=== PATIENT | male | born 1950 | race Caucasian/White ===

== ENCOUNTER 2016-08-17 04:23 | Emergency (ER) | payer MEDICARE ==
[~2016-08-17] VITALS: Ht 180.3 cm; Wt 78.0 kg
[2016-08-17] MEDS ORDERED: ONDANSETRON 2MG/ML, 2ML IVPush ONE (05:00)
[2016-08-17] MEDS ORDERED: SODIUM CHLORIDE FLUSH 10ML SYR IVF ONE (05:00)
[2016-08-17] MEDS ORDERED: SODIUM CHLORIDE 0.9% 1,000ML IVBOLUS ONE (05:00)
[2016-08-17] MEDS ORDERED: THIAMINE 100 MG in SODIUM CHLORIDE 0.9% 50 ML IVPB ONE (05:00)
[2016-08-17] MEDS ORDERED: LORazepam 2 MG/ML, 1ML IVPush PRN (05:00)
[2016-08-17] MEDS ORDERED: LORazepam 2 MG/ML, 1ML ONE (05:05)
[2016-08-17] MEDS ORDERED: ONDANSETRON 2MG/ML, 2ML ONE (05:05)
[2016-08-17 05:50] LABS: ASPARTATE AMINO TRANSFERASE 43 U/L (15-37); BLOOD UREA NITROGEN 16 mg/dL (7-18)
[2016-08-17] MEDS ORDERED: FAMOTIDINE 20 MG/2 ML IVPush ONE (06:00)
[2016-08-17] MEDS ORDERED: FAMOTIDINE 20 MG/2 ML ONE (06:34)
[2016-08-17 09:01] VITALS: BP 148/88
== END 2016-08-17 09:19 | disposition home or self-care (01) ==
LOC: ED 07:36
DX: K29.20 Alcoholic gastritis without bleeding (principal); E16.2 Hypoglycemia, unspecified
CPT/HCPCS: 36415; 71010; 80053; 80307; 82962; 85025; 93005; 96365; 96375; 99285; J2060; J2405; J3411; J7030; S0028